=== PATIENT | female | born 1990 | race Caucasian/White ===

== ENCOUNTER 2018-04-06 22:45 | Emergency (ER) | payer OTHER ==
[2018-04-06 22:56] VITALS: BP 136/71
--- NOTE | 2018-04-07 00:13 | ER Document Report ---
ED Medical Screen (RME) - General Chief Complaint: Neck Problem Stated Complaint: NECK PAIN/FEVER Time Seen by Provider: 04/07/18 00:10 Notes: Patient is a 27-year-old female otherwise healthy presenting to the emergency department complaining of generalized neck pain for the last 3 days. Patient states initially she woke up with the neck pain and thought that she had just slept wrong. Patient states that over the last couple of days has developed a generalized intermittent headache and then yesterday had a fever T-max 104. Patient is denying any runny nose, cough, vomiting, diarrhea, chest pain, shortness of breath. Patient does admit to pain in her cervical spine upon movement of her neck. Patient is denying any pain radiating into bilateral shoulders and denies any injuries. Past medical history: Depression, acne Medications: Celexa, spironolactone Allergies: Penicillin Patient is unsure of her last menstrual period because she has an IUD placed GENERAL: Alert, interacts well. No acute distress. Nontoxic HEAD: Normocephalic, atraumatic. EYES: Pupils equal, round, and reactive to light. Extraocular movements intact. NECK: Full range of motion although slow and patient is complaining of pain. Supple. Trachea midline. SKIN: Warm, dry, normal turgor. No rashes or lesions noted. I have greeted and performed a rapid initial assessment of this patient. A comprehensive ED assessment and evaluation of the patient, analysis of test results and completion of the medical decision making process will be conducted by additional ED providers. TRAVEL OUTSIDE OF THE [place] IN LAST 30 DAYS: No Physical Exam - Vital signs Vitals: Temp Pulse Resp BP Pulse Ox 98.9 F 96 18 136/71 H 99 04/06/18 22:50 04/06/18 22:50 04/06/18 22:50 04/06/18 22:50 04/06/18 22:50 Course - Vital Signs Vital signs: Temp Pulse Resp BP Pulse Ox 98.9 F 96 18 136/71 H 99 04/06/18 22:50 04/06/18 22:50 04/06/18 22:50 04/06/18 22:50 04/06/18 22:50
[2018-04-07] MEDS ORDERED: IBUPROFEN 600 MG TABLET PO ONE (01:13)
[2018-04-07] MEDS ORDERED: CLINDAMYCIN HCL 150 MG CAPSULE PO ONE (01:13)
--- NOTE | 2018-04-07 01:14 | ER Document Report ---
ED General - General Chief Complaint: Neck Problem Stated Complaint: NECK PAIN/FEVER Time Seen by Provider: 04/07/18 00:10 Notes: Patient is a 27-year-old female without chronic medical problems, up-to-date on all images of of neck pain for the past 3-4 days, reports that she developed a fever up to 104 F today at home. Patient states that she has been treating with Tylenol and ibuprofen with moderate improvement of her symptoms. Nothing worsens her symptoms other than moving her neck. She also complains of bilateral ear pain worse on the right. No significant sore throat, cough, notes a mild intermittent headache currently resolved. Denies any focal weakness, numbness or confusion. No history of similar symptoms in the past. Has not seen her general physician regarding today's concerns. TRAVEL OUTSIDE OF THE [place] IN LAST 30 DAYS: No Past Medical History - General Information source: Patient - Social History Smoking Status: Never Smoker Frequency of alcohol use: None Drug Abuse: None Lives with: Family Family History: Reviewed & Not Pertinent Review of Systems - Review of Systems Notes: Constitutional: Positive for fever. HENT: Positive for throat swelling, bilateral ear pain, neck stiffness Eyes: Negative for visual changes. Cardiovascular: Negative for chest pain. Respiratory: Negative for shortness of breath. Gastrointestinal: Negative for abdominal pain, vomiting or diarrhea. Genitourinary: Negative for dysuria. Musculoskeletal: Negative for back pain. Skin: Negative for rash. Neurological: Negative for headaches, weakness or numbness. 10 point ROS negative except as marked above and in HPI. Physical Exam - Vital signs Vitals: Temp Pulse Resp BP Pulse Ox 98.9 F 96 18 136/71 H 99 04/06/18 22:50 04/06/18 22:50 04/06/18 22:50 04/06/18 22:50 04/06/18 22:50 Interpretation: Normal Notes: PHYSICAL EXAMINATION: GENERAL: Well-appearing, well-nourished and in no acute distress. HEAD: Atraumatic, normocephalic. EYES: Pupils equal round and reactive to light, extraocular movements intact, sclera anicteric, conjunctiva are normal. ENT: nares patent, oropharynx clear without exudates. Moist mucous membranes. Right TM with purulent effusion and bulging. Left TM clear. NECK: Normal range of motion, bilateral anterior cervical lymphadenopathy is present. LUNGS: Breath sounds clear to auscultation bilaterally and equal. No wheezes rales or rhonchi. HEART: Regular rate and rhythm without murmurs ABDOMEN: Soft, nontender, normoactive bowel sounds. No guarding, no rebound. No masses appreciated. EXTREMITIES: Normal range of motion, no pitting or edema. No cyanosis. NEUROLOGICAL: No focal neurological deficits. Moves all extremities spontaneously and on command. PSYCH: Normal mood, normal affect. SKIN: Warm, Dry, normal turgor, no rashes or lesions noted. Course - Re-evaluation Re-evalutation: 04/07/18 01:09 Patient presents with complaints of 3-4 days of neck pain, now with a fever at home up to 104 F although is afebrile here on presentation. Patient is extremely well in appearance, laughing conversing with me commonly during exam. She has no true meningismus. No neck stiffness. Full neck range of motion in all directions without any difficulty both actively and passively. The patient has no photophobia, no photophobia. Vitals are completely within normal limits. No midline cervical spine tenderness, step-offs or deformities. No palpable swelling of the neck. She does have bilateral anterior cervical lymphadenopathy. A right otitis media is noted 10 patient does report that she is been having some significant pain to both her ears right more than left. She also has bilateral tonsillar hypertrophy, uvula is midline. Rapid strep is pending. I have conversed with the patient that an alternative much more worrisome diagnosis would be an acute bacterial meningitis. We have reviewed that the duration of her symptoms, her well appearance and normal vitals are strongly suggestive that this is not the presentation of bacterial meningitis. I have informed her that the only way we can definitively screw this diagnosis with a lumbar puncture. I have asked him that I believe that the chance that she has a bacterial meningitis is less than 1-2% but not 0%. The patient has consented at this point to avoid lumbar puncture and understands that there is a low probability that we will be missing bacterial meningitis. A viral meningitis to be an alternative consideration but this would require only supportive care. Will treat with antibiotics for right otitis media, possible strep pharyngitis. - Vital Signs Vital signs: Temp Pulse Resp BP Pulse Ox 98.9 F 96 18 136/71 H 99 04/06/18 22:50 04/06/18 22:50 04/06/18 22:50 04/06/18 22:50 04/06/18 22:50 Discharge - Discharge Clinical Impression: Neck pain, Pharyngeal swelling Right otitis media Qualifiers: Otitis media type: suppurative Chronicity: acute Recurrence: non-recurrent Spontaneous tympanic membrane rupture: without spontaneous rupture Qualified Code(s): H66.001 - Acute suppurative otitis media without spontaneous rupture of ear drum, right ear Condition: Good Disposition: HOME, SELF-CARE Additional Instructions: You were seen today for ear pain and have an acute ear infection. Please take the antibiotic that has been prescribed until it is completed even if you are feeling better before you have finished all the antibiotics. For your pain: Take ibuprofen 600 mg and acetaminophen 1000 mg every 6 hours together as needed for pain. Return if you have worsening of your pain, loss of hearing in the af fected ear, worsening facial pain, headaches, pass out, worsening of your neck pain, become confused, or have any other worrisome symptoms to you. Please follow-up with your general physician within the next 24-48 hours. Prescriptions: Clindamycin HCl 300 mg PO TID #30 capsule
== END 2018-04-07 01:50 | disposition home or self-care (01) ==
LOC: ER 22:45
DX: H66.001 Acute suppurative otitis media without spontaneous rupture of ear drum, right ear (principal); M54.2 Cervicalgia; R50.9 Fever, unspecified; Z79.899 Other long term (current) drug therapy; H92.03 Otalgia, bilateral; M43.6 Torticollis
CPT/HCPCS: 87070; 87077; 87880; 99283